=== PATIENT | male | born 1960 | race Hispanic/Latino ===

== ENCOUNTER 2016-06-11 12:57 | Emergency (ER) | payer MEDICARE ==
[2016-06-11 13:10] VITALS: BP 124/84
--- NOTE | 2016-06-11 13:25 | Emergency Department Report ---
ED Upper Extremity Inj HPI - General Chief Complaint: Extremity Injury, Upper Stated Complaint: POSS BROKEN R HAND Time Seen by Provider: 06/11/16 13:24 Source: patient Mode of arrival: Ambulatory Limitations: No Limitations - History of Present Illness Initial Comments: Patient complaining right hand injury 3 days - Related Data Previous Rx's Medication Instructions Recorded Last Taken Type Codeine (Nf) 30 mg PO Q4H PRN #20 tablet 06/11/16 Unknown Rx Allergies Allergy/AdvReac Type Severity Reaction Status Date / Time No Known Allergies Allergy Verified 06/11/16 13:14 ED Review of Systems ROS: Stated complaint: POSS BROKEN R HAND Other details as noted in HPI Constitutional: denies: chills, fever Eyes: denies: eye pain, eye discharge, vision change ENT: denies: ear pain, throat pain Respiratory: denies: cough, shortness of breath, wheezing Musculoskeletal: joint swelling Skin: denies: rash, lesions Neurological: denies: headache, weakness, paresthesias ED Past Medical Hx - Past Medical History Hx Hypertension: Yes Hx GERD: Yes Additional medical history: HIGH CHOLESTEROL. "liver problem" - Surgical History Additional Surgical History: back surgery "lower". Rotator cuff repair - Social History Smoking Status: Current Every Day Smoker Substance Use Type: None - Medications Home Medications: Home Medications Medication Instructions Recorded Confirmed Last Taken Type Codeine (Nf) 30 mg PO Q4H PRN #20 tablet 06/11/16 Unknown Rx ED Physical Exam - General Limitations: No Limitations General appearance: alert, in no apparent distress - Head Head exam: Present: atraumatic, normocephalic - Eye Eye exam: Present: normal appearance - ENT ENT exam: Present: mucous membranes moist - Neck Neck exam: Present: normal inspection - Respiratory Respiratory exam: Present: normal lung sounds bilaterally. Absent: respiratory distress, wheezes, rales, rhonchi - Expanded Upper Extremity Exam Right Hand L/R Back: 1 - Erythema, tenderness, swelling. No deformity noted. Neurovascular motor intact distally. ED Course Vital Signs 06/11/16 13:04 Temperature 98.1 F Pulse Rate 70 Respiratory 17 Rate Blood Pressure 124/84 O2 Sat by Pulse 98 Oximetry Critical care attestation.: If time is entered above; I have spent that time in minutes in the direct care of this critically ill patient, excluding procedure time. ED Disposition Clinical Impression: Contusion of hand Disposition: DISCHARGED TO HOME OR SELFCARE Is pt being admited?: No Does the pt Need Aspirin: No Condition: Stable Instructions: Hand Sprain (ED) Prescriptions: Codeine (Nf) 30 mg PO Q4H PRN #20 tablet PRN Reason: Pain Referrals: PRIMARY CARE, [Primary Care Provider] - 3-5 Days COLETTE MERLOS MD [Staff Physician] - 3-5 Days
--- NOTE | 2016-06-11 13:47 | XRay Report ---
RIGHT HAND, 3 VIEWS History: Pain. Findings: A chronic healed fracture of the fifth metacarpal with anterior bowing is noted. There is no evidence for acute fracture, joint pathology or soft tissue foreign body. The soft tissues are unremarkable. Impression: Chronic healed fracture of the fifth metacarpal. No acute injury is appreciated.
== END 2016-06-11 14:16 | disposition home or self-care (01) ==
LOC: ED 12:57
DX: S60.221A Contusion of right hand, initial encounter (principal); I10 Essential (primary) hypertension; K21.9 Gastro-esophageal reflux disease without esophagitis; E78.00 Pure hypercholesterolemia, unspecified; F17.200 Nicotine dependence, unspecified, uncomplicated; X58.XXXA Exposure to other specified factors, initial encounter; Y93.9 Activity, unspecified; Y99.9 Unspecified external cause status; Y92.89 Other specified places as the place of occurrence of the external cause

== ENCOUNTER 2018-10-05 09:36 | Emergency (ER) | payer MEDICARE ==
[2018-10-05 09:42] VITALS: BP 116/83
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
== END 2018-10-05 10:45 | disposition home or self-care (01) ==
LOC: ED 09:36
DX: S01.01XD Laceration without foreign body of scalp, subsequent encounter (principal); X58.XXXD Exposure to other specified factors, subsequent encounter